=== PATIENT | male | born 1955 | race Caucasian/White ===

== ENCOUNTER 2023-11-27 13:17 | Emergency (ER) | payer OTHER, SELFPAY ==
[2023-11-27 13:28] VITALS: BP 149/102
[2023-11-27 15:23] VITALS: BP 153/100
--- NOTE | 2023-11-27 15:38 | ED.GENMED ---
History of Present Illness
General
Chief Complaint: Vascular Symptoms
Source: patient
Time Seen by Provider: 11/27/23 15:18
History of Present Illness
History of Present Illness:
67-year-old male presents to the emergency room complaining of pain in his left thigh, low back. Pain has been present for the past week. It is worse with movement. Pain does radiate down his leg to his lower leg but the most significant area
pain is in the low back and thigh. He denies any numbness or tingling. He has taken a couple doses of Tylenol over the past week which did not help. He denies any fever, chills, nausea or vomiting. Patient does take Eliquis and has been
compliant with it. Patient states he has a significant history of peripheral vascular disease. He has known disease in the left leg for which she is scheduled to have a procedure done in January. Patient was concerned that this discomfort could
be related to his vascular disease. However he does endorse a history of back pain and 'sciatica'.
Past History
Past History
ED Past Medical History: CAD and HTN
Social History
Tobacco: Non-smoker
Alcohol: Occasional
Personal:
Family History
Family History: CAD
Phy Exam
Physical Exam
Physical Exam:
General: Awake, Alert, Oriented X3. No acute distress.
Vitals: unremarkable
Head: Atraumatic
Eyes: Pupils equal, EOMI
Throat: Airway intact, no exudates
Neck: Trachea midline
Lungs: Clear and equal b/l
Heart: Regular rate, no murmurs
Abd: Soft, Nontender, No pulsatile mass
Back: Some tenderness to palpation over the L5-S1 region as well as the left sacroiliac region.
Neuro: Cranial nerves intact, muscle strength equal bilaterally, cerebellar exam normal
Skin: Warm, dry, no rash
Extremities: Femoral pulses are intact, Doppler pulses present left leg. Both lower extremities are warm and have brisk capillary refill
Course
Orders/Labs/Results
Orders:
Orders
11/27/23 15:33
Acetaminophen 1000MG/100Ml [Ofirmev] 1,000 mg in 100 ml IV ONCE
Acetaminophen IV Indication:: ED Narcotic Naive Pt-ONCE
Lumbar Spine Complete, 4 View [CR Lumbar Spine Comp Min 4 Vw*] Urgent
Comment:
Reason For Exam: left low back/thigh pain
11/27/23 15:40
Basic Metabolic Panel Urgent
Complete Blood Count/With Diff Urgent
11/27/23 17:44
Oxycodone [Roxicodone] 5 mg PO NOW STA
Abnormal Lab Results
11/27/23
15:40
RBC 4.53 L 10^6/uL
(4.70-6.10)
MCH 31.6 H pg
(27.0-31.0)
Immature Gran % 0.6 H %
(0-0.5)
Lymphocytes % 20.1 L %
(20.5-51.1)
Carbon Dioxide 19 L mmol/L
(22-30)
Glucose 138 H mg/dl
(70-99)
11/27/23 15:40
11/27/23 15:40
Vital Signs
Initial and Last Documented VS:
Initial Vital Signs
Temp Pulse Resp BP Pulse Ox
98.3 F 109 16 149/102 98
11/27/23 13:28 11/27/23 13:28 11/27/23 13:28 11/27/23 13:28 11/27/23 13:28
Last Documented Vital Signs
Temp Pulse Resp BP Pulse Ox
98.3 F 97 20 100/78 93
11/27/23 13:28 11/27/23 17:30 11/27/23 17:30 11/27/23 17:00 11/27/23 17:30
MDM/Problems Addressed
Differential Diagnosis Includes:
Lumbar radiculopathy, low back spasm, vascular insufficiency,
MDM/Problems Addressed:
I do not believe the patient has vascular insufficiency as his foot is pink, warm and there are Doppler pulses. In addition the patient's pain is primarily focused around the low back and proximal leg. I would expect there to be more pain in the
distal extremity if this were ischemic in nature. Patient feels better after IV Tylenol. Will discharge him with a prescription for a Medrol Dosepak and a few oxycodone. He will follow-up with his doctors in [place]
*Radiology
Radiology exam reviewed: preliminary read by ED provider (Personally the patient's lumbar films and see no acute abnormality) and radiology read reviewed
*Pulse Oximetry
Patient hypoxic: no
*Critical Care Note
Total Time (30-74mins, 75-104mins- exclusive of procedures): Not Applicable
Patient Management
Social determinants of health affecting care: Living situation
ED Attending Note
-
Portions of this chart may have been created with voice recognition software.� Occasional wrong word or��sound alike� substitutions may have occurred due to the inherent limitations of voice recognition software.
Discharge Plan
Departure
Patient Disposition: Home (Routine Discharge)
Date of Disposition: 11/27/23
Time of Disposition: 17:35
Patient with high blood pressure during this ER visit?: No
Discharge Problem:
Left lumbar radiculopathy, Low back pain
Instructions: Radiculopathy (DC)
Prescriptions:
New
methylprednisolone [Medrol (Javier)] 4 mg tablets,dose pack
See Rx Instructions .ROUTE .COMPLEX Qty: 21 0RF
Rx Instructions:
for 6 days
oxycodone 5 mg tablet
5 mg PO Q6H PRN (Reason: Pain) Qty: 12 0RF
No Action
metoprolol succinate 50 MG tablet extended release 24 hr
50 mg PO DAILY
Patient Comments:
TAKES GENERIC
amlodipine 5 MG tablet
5 mg PO DAILY
Patient Comments:
TAKES GENERIC
aspirin 81 MG tablet,delayed release (DR/EC)
81 mg PO DAILY
garlic 1 CAP capsule
1 cap PO DAILY
omega-3 fatty acids-fish oil [Fish Oil] 1,000 MG capsule
2,000 mg PO DAILY
Patient Comments:
PATIENT STATED HE TAKES 9097-8759 MG/DAY
multivitamin with folic acid [Tab-A-Nevaeh] 1 TABLET tablet
1 tab PO DAILY
Zocor
PO DAILY
Patient Comments:
TAKES GENERIC---PATIENT THINKS DOSE IS 10 OR 20 MG
Referrals:
UNKNOWN - PT DOES,NOT KNOW [Family Provider] -
Activity Restrictions/Additional Instructions:
Please follow up with your primary care doctor when you get home.
Interventions
Interventions:
*Risk Screen - Suicide Last Done: 11/27/23 13:28
*General Assessment Last Done: 11/27/23 13:28
*Neglect/Abuse Screening Last Done: 11/27/23 13:28
ED- Fall Risk Assessment Last Done: 11/27/23 15:46
*ED COVID-19 Vaccine History Last Done: 11/27/23 15:46
*Nursing Disposition Last Done: 11/27/23 18:03
ED- Cardiac Assessment Last Done: 11/27/23 15:25
ED- Pulmonary Assessment Last Done: 11/27/23 15:25
ED-Peripheral Vascular Assessment Last Done: 11/27/23 15:25
ED-Skin Assessment Last Done: 11/27/23 15:25
Discharge Date and Time
Discharge Date/Time: 11/27/23 18:03
Print Language: URDU
[2023-11-27] MEDS: OFIRMEV 100 IV (15:44)
[2023-11-27 15:45] VITALS: BMI 32.7
[2023-11-27 16:00] VITALS: BP 165/86
[2023-11-27 16:17] LABS: Blood Urea Nitrogen 18 mg/dl (9-20); Calcium 9.9 mg/dl (8.4-10.2); Carbon Dioxide 19 mmol/L (22-30); Chloride 103 mmol/L (98-107); Estimated Creatinine Clearance 91 ml/min; Glucose 138 mg/dl (70-99); Potassium 4.3 mmol/L (3.5-5.1); Sodium 139 mmol/L (135-145); eGFR > 60.00
[2023-11-27 16:34] LABS: % Basophils 0.3 % (0-2); % Eosinophils 1.9 % (0-6); % Immature Granulocytes 0.6 % (0-0.5); % Lymphocytes 20.1 % (20.5-51.1); % Monocytes 8.5 % (1.7-9.3); % Neutrophils 68.6 % (42.2-75.2); Absolute Eosinophils 0.1 10^3/uL (0-0.7); Absolute Lymphocytes 1.3 10^3/uL (1.2-3.4); Absolute Monocytes 0.5 10^3/uL (0.1-0.6); Absolute Neutrophils 4.3 10^3/uL (1.4-6.5); Hematocrit 39.7 % (39.0-52.0); Hemoglobin 14.3 g/dL (13.0-18.0); Mean Corpuscular Hgb 31.6 pg (27.0-31.0); Mean Corpuscular Volume 87.6 fL (80.0-94.0); Mean Platelet Volume 10.4 fL (7.4-10.4); Nucleated Red Blood Cells % 0 % (-); Platelet Count 189 10^3/uL (130-400); Red Blood Cell Count 4.53 10^6/uL (4.70-6.10); White Blood Cell Count 6.2 10^3/uL (4.8-10.8)
[2023-11-27 17:00] VITALS: BP 100/78
[2023-11-27] MEDS: ROXICODONE 5 MG PO (17:53)
== END 2023-11-27 18:03 | disposition home or self-care (01) ==
LOC: EMR 13:17
PROVIDERS: EMERGENCY PHYSICIAN Emergency Medicine
DX: M47.26 Other spondylosis with radiculopathy, lumbar region (principal); M54.50 Low back pain, unspecified; M79.652 Pain in left thigh; I10 Essential (primary) hypertension; I25.10 Atherosclerotic heart disease of native coronary artery without angina pectoris; I73.9 Peripheral vascular disease, unspecified; Z79.01 Long term (current) use of anticoagulants
CPT/HCPCS: 99284; 96374; 72110; 80048; 85025